=== PATIENT | female | born 2000 | race African-American/Black ===

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

== ENCOUNTER 2023-03-25 18:16 | Emergency (ER) | payer BC, OTHER ==
[2023-03-25 18:21] VITALS: BP 127/86; PULSE 94; RESP 18; TEMP 97.6; BMI 29.8
== END 2023-03-25 19:55 | disposition home or self-care (01) ==
LOC: JERFT 18:16
PROC: 0HQGXZZ Repair Left Hand Skin, External Approach (ICD-10-PCS; principal; 2023-03-25)
DX: S61.211A Laceration without foreign body of left index finger without damage to nail, initial encounter (principal); W26.0XXA Contact with knife, initial encounter; Y28.0XXA Contact with sharp glass, undetermined intent, initial encounter; Y93.89 Activity, other specified
CPT/HCPCS: 99282-25

== ENCOUNTER 2023-04-01 12:39 | Emergency (ER) | payer OTHER ==
[2023-04-01 13:04] VITALS: BP 127/97; PULSE 85; RESP 18; TEMP 97.9; BMI 29.8
== END 2023-04-01 14:08 | disposition home or self-care (01) ==
LOC: JERFT 12:39
DX: Z48.02 Encounter for removal of sutures (principal)
CPT/HCPCS: 99281-25